=== PATIENT | male | born 1990 | race Two or more races ===

== ENCOUNTER 2018-01-25 11:27 | Emergency (ER) | payer OTHER ==
[2018-01-25 11:35] VITALS: BP 123/71; BMI 33.8
--- NOTE | 2018-01-25 12:41 | DR.GENAD ---
HPI - PCP Primary Care Physician: bautista - HPI Comment HPI Comment: HISTORY BELOW. - Complaint/Symptoms Chief Complaint Doctors Comments: REDNESS AND SWELLING RIGHT ANKLE AFTER SOMETHING BITE HIM IN THE AREA.PATIENT SAID IT STARTED YESTERDAY. NO FEVER. Chief Complaint:: Pt states he thinks something bit him on his lateral right ankle. He is unsure of what bit him. Swelling and pain to that area has increased since yesterday and the pain is now shooting up his leg into his thigh - Nurses notes reviewed Nurses Notes Review: Yes - Source History Provided: Patient - Mode of Arrival Mode of Arrival: Ambulatory - Timing Onset of Chief Complaint: 01/24/18 Came on: Suddenly - Duration Duration: Constant Duration: Days - Severity Severity: Moderate PMH - PMH Past Medical History: No Past Surgical History: No - Family History History of Family Medical Conditions: No - Social History Does patient currently use any type of tobacco product: No Have you used tobacco products in the last 12 months: No Type of Tobacco Use: None Does any household member use tobacco: No Alcohol Use: None Do you use any recreational Drugs:: No Lives With: Friend Lives Where: Home - infectious screening In the last 2 months have you had wt loss of >10#?: NO Have you had fever, night sweats or hemotysis?: No Have you traveled outside the country in the last 6 months?: No Isolation: Standard ROS - Review of Systems Constitutional: No Symptoms Reported. negative: Chills, Fever, Weakness, Fatigue Eyes: No Symptoms Reported. negative: Eye Pain, Discharge ENTM: No Symptoms Reported. negative: Ear Pain, Nose Discharge, Nose Congestion , Throat Pain Respiratoy: No Symptoms Reported. negative: Productive Cough, Non-Productive Cough, Short of Breath, Wheezing, Hemoptysis Cardiovascular: No Symptoms Reported. negative: Chest Pain Gastrointestinal/Abdominal: No Symptoms Reported. negative: Abdominal Pain, Diarrhea, Nausea, Vomiting Genitourinary: No Symptoms Reported. negative: Dysuria, Frequency, Hematuria Neurological: No Symptoms Reported. negative: Headache, Weakness, Dizziness Musculoskeletal: Right, Ankle (SWELLING AND REDNESS.) Integumentary: Other (SWELLING AND REDNESS LATERAL ASPECT OF RIGHT ANKLE.) Hematologic/Lymphatic: No Symptoms Reported Endocrine: No Symptoms Reported All Other Systems: Reviewed and Negative PE - Vital Signs Vitals: Temperature 98.2 F Pulse Rate 76 Respiratory Rate 20 Blood Pressure 123/71 O2 Sat by Pulse Oximetry 99 - General Limitations: No Limitations General Appearance: Alert - Head Head Exam: Normal Inspection - Eyes Eye exam: Normal Appearance - ENT ENT Exam: Normal External Ear Exam TM/Canal Exam: Bilateral Normal Nose Exam: Normal Nose Exam Mouth Exam: Normal Inspection Throat Exam: Normal Inspection - Neck Neck Exam: Trachea Midline - Chest Chest Inspection: Symmetric Chest Wall Rise - Respiratory Respiratory Exam: Normal Lung Sounds Bilat Respiratory Exam: Bilateral Clear to Auscultation - Cardiovascular Cardiovascular Exam: Regular Rate, Normal Rhythm, Normal Heart Sounds - Abdominal Exam Abdominal Exam: Normal Bowel Sounds, Soft. negative: Tenderness - Extremities Extremities Exam: Tenderness (REDNESS AND TENDERNESS LATERAL ASPECT OF RIGHT ANKLE.) - Back Back Exam: Normal Inspection - Neurologic Neurological Exam: Alert, Oriented X3 - Psychiatric Psychiatric Exam: Normal Affect, Normal Mood - Skin Skin Exam: Erythema MDM - Additional Information Additional Information Obtained From: Family - Differential Diagnosis Differential Diagnosis: CELLULITIS RIGHT ANKLE. Course - Treatment Treatment: SEE ORDERS. HISTORY C VIA INVENTORY TAKER THAT PATIENT CAME TO HOSPITAL WITH. - Education/Counseling Education/Counseling: Patient, Education Educated On: Diagnosis, Needs for Follow Up ROR - Labs Reviewed Laboratory Results Reviewed?: Yes Result Diagrams: 01/25/18 12:55 01/25/18 12:55 Laboratory: WBC 17.8 X10^3/uL (3.6-10.0) H 01/25/18 12:55 RBC 4.75 X10^6/uL (4.7-6.0) 01/25/18 12:55 Hgb 14.7 g/dL (13.5-18.0) 01/25/18 12:55 Hct 41.5 % (42.0-54.0) L 01/25/18 12:55 MCV 87.4 fL (80.0-100.0) 01/25/18 12:55 MCH 31.0 pg (27.0-34.0) 01/25/18 12:55 MCHC 35.4 g/dL (33.0-35.0) H 01/25/18 12:55 RDW 13.2 % (11.6-16.5) 01/25/18 12:55 Plt Count 224 X10^3/uL (150.0-450.0) 01/25/18 12:55 MPV 7.5 fL (7.4-11.0) 01/25/18 12:55 Neut % (Auto) 86.5 % (42.0-75.0) H 01/25/18 12:55 Lymph % (Auto) 6.8 % (21.0-51.0) L 01/25/18 12:55 [place] % (Auto) 5.8 % (0.0-13.0) 01/25/18 12:55 Eos % (Auto) 0.6 % (0.9-2.9) L 01/25/18 12:55 Baso % (Auto) 0.3 % (0.2-1.0) 01/25/18 12:55 Neut # (Auto) 15.4 x10^3/uL (2.2-4.8) H 01/25/18 12:55 Lymph # (Auto) 1.2 X10^3/uL (1.3-2.9) L 01/25/18 12:55 Forest # (Auto) 1.0 x10^3/uL (0.3-0.8) H 01/25/18 12:55 Eos # (Auto) 0.1 x10^3/uL (0.0-0.2) 01/25/18 12:55 Baso # (Auto) 0.1 X10^3/uL (0.0-0.1) 01/25/18 12:55 Absolute Nucleated RBC 0.0 /100WBC 01/25/18 12:55 Sodium 137 mmol/L (136-145) 01/25/18 12:55 Corrected Sodium TNP 01/25/18 12:55 Potassium 3.1 mmol/L (3.5-5.1) L 01/25/18 12:55 Chloride 102 mmol/L (98-107) 01/25/18 12:55 Carbon Dioxide 24.9 mmol/L (21-32) 01/25/18 12:55 BUN 11 mg/dL (7-18) 01/25/18 12:55 Creatinine 0.99 mg/dL (0.70-1.30) 01/25/18 12:55 Est GFR (MDRD) Af Amer > 60 (>60) 01/25/18 12:55 Est GFR (MDRD) Non-Af > 60 (>60) 01/25/18 12:55 Glucose 103 mg/dL (65-99) H 01/25/18 12:55 Calcium 7.9 mg/dL (8.5-10.1) L 01/25/18 12:55 Corrected Calcium 8.5 mg/dL (8.5-10.1) 01/25/18 12:55 Total Bilirubin 0.60 mg/dL (0.2-1.0) 01/25/18 12:55 AST 16 Units/L (15-37) 01/25/18 12:55 ALT 35 Units/L (12-78) 01/25/18 12:55 Alkaline Phosphatase 55 Units/L (46-116) 01/25/18 12:55 C-Reactive Protein 109.50 mg/L (0-3.0) H 01/25/18 12:55 Total Protein 6.7 g/dL (6.4-8.2) 01/25/18 12:55 Albumin 3.3 g/dL (3.4-5.0) L 01/25/18 12:55 Globulin 3.4 g/dL (2.5-4.5) 01/25/18 12:55 Albumin/Globulin Ratio 1.0 Ratio (1.1-2.1) L 01/25/18 12:55 - XRAY XRAY Interpreted by: Radiologist XRAY Findings: REPORT DISCUSS WITH PATIENT. - Diagnosis Discharge Problem: Cellulitis of right foot, Cellulitis of right ankle - Discharge Plan Disposition: 01 HOME, SELF-CARE Condition: Stable Prescriptions: Clindamycin HCl 300 mg PO Q6H #40 cap Ibuprofen [MOTRIN TAB 800 MG *] 800 mg PO Q8H PRN #30 tab PRN Reason: Pain/Inflammation Sulfamethoxazole-Trimethoprim [BACTRIM DS TAB 800/160 MG *] 1 tab PO BID #20 tab - Follow ups/Referrals Follow ups/Referrals: NORMA HESTER [STAFF PHYSICIAN] - 2 days [facility],None [Primary Care Provider] - 2 days - Instructions Instructions: Cellulitis, Adult, [id number] Additional Instructions: RETURN TO ED IF WORSE.
[2018-01-25 13:13] LABS: BASOPHILS # (AUTO) 0.1 X10^3/uL (0.0-0.1); BASOPHILS % (AUTO) 0.3 % (0.2-1.0); EOSINOPHILS # (AUTO) 0.1 x10^3/uL (0.0-0.2); EOSINOPHILS % (AUTO) 0.6 % (0.9-2.9); HEMATOCRIT 41.5 % (42.0-54.0); HEMOGLOBIN 14.7 g/dL (13.5-18.0); LYMPHOCYTES # (AUTO) 1.2 X10^3/uL (1.3-2.9); LYMPHOCYTES % (AUTO) 6.8 % (21.0-51.0); MEAN CORPUSCULAR HGB CONC 35.4 g/dL (33.0-35.0); MEAN CORPUSCULAR VOLUME 87.4 fL (80.0-100.0); MEAN PLATELET VOLUME 7.5 fL (7.4-11.0); MONOCYTES % (AUTO) 5.8 % (0.0-13.0); NEUTROPHILS # (AUTO) 15.4 x10^3/uL (2.2-4.8); NEUTROPHILS % (AUTO) 86.5 % (42.0-75.0); PLATELET COUNT 224 X10^3/uL (150.0-450.0); RED BLOOD COUNT 4.75 X10^6/uL (4.7-6.0); RED CELL DISTRIBUTION WIDTH 13.2 % (11.6-16.5); WHITE BLOOD COUNT 17.8 X10^3/uL (3.6-10.0)
--- NOTE | 2018-01-25 13:28 | RAD ---
Examination: X-rays of the right ankle. Clinical history: Right ankle pain and swelling. Technique: Three views of the right ankle were obtained. Comparison: None available. Findings: No acute fracture, dislocation, or destructive bony lesion is noted. No soft tissue abnormality is noted. Impression: 1. No acute fracture or dislocation. Reported By:
[2018-01-25 13:30] LABS: ALANINE AMINOTRANSFERASE 35 Units/L (12-78); ALBUMIN 3.3 g/dL (3.4-5.0); ALKALINE PHOSPHATASE 55 Units/L (46-116); ASPARTATE AMINO TRANSFERASE 16 Units/L (15-37); BLOOD UREA NITROGEN 11 mg/dL (7-18); CALCIUM 7.9 mg/dL (8.5-10.1); CARBON DIOXIDE 24.9 mmol/L (21-32); CHLORIDE 102 mmol/L (98-107); COR CA(FOR HYPOALB) 8.5 mg/dL (8.5-10.1); CREATININE 0.99 mg/dL (0.70-1.30); SODIUM 137 mmol/L (136-145); TOTAL PROTEIN 6.7 g/dL (6.4-8.2); eGFR BLACK RACES > 60 (>60); eGFR NON BLACK RACES > 60 (>60)
[2018-01-25] MEDS ORDERED: DECADRON INJ IM ONE (13:33)
[2018-01-25] MEDS ORDERED: TORADOL 60 MG VIAL IM ONE (14:12)
[2018-01-25] MEDS ORDERED: BACTRIM DS TAB PO ONE ×2 (14:12→14:30)
[2018-01-25] MEDS ORDERED: TORADOL 60 MG VIAL ONE (14:30)
[2018-01-25] MEDS ORDERED: BACITRACIN ZINC ONE (14:30)
== END 2018-01-25 14:44 | disposition home or self-care (01) ==
LOC: ER 12:01
DX: L03.115 Cellulitis of right lower limb (principal)
CPT/HCPCS: 36415; 73610; 80053; 85025; 86140; 87040; 96372; 99282; 99283; J1885